=== PATIENT | male | born 1950 | race Caucasian/White ===

== ENCOUNTER → 2018-05-24 | Day surgery (SDC) | payer OTHER ==
[~2018-05-24] VITALS: Ht 172.7 cm; Wt 70.3 kg
[~2018-05-24] MED LIST: PERCOCET 5-3251 EACH PO
--- NOTE | 2018-05-24 14:19 | Operative Report ---
Operative/Inv Procedure Report Surgery Date: 05/24/18 Name of Procedure: 1. Nasal septal reconstruction 2. Middle turbinate destin bullosa excision, left 3. Middle turbinate partial excision, right 4. Inferior turbinate outfracture and submucous resection, bilateral Pre-Operative Diagnosis: 1. Deviated nasal septum 2. Inferior turbinate hypertrophy, bilateral 3. Destin bullosa middle turbinate, left 4. MiddleTurbinate hypertrophy, right Post-Operative Diagnosis: Same Estimated Blood Loss: less than 50ml Surgeon/Distresser: Payton Martinez MD Anesthesia: general endotracheal tube Monitors: None Drains: None Specimens: septum and turbinates Complications: None Condition: Stable on leaving the OR Operative Indication: Nasal airway obstruction secondary to deviated septum and turbinate hypertrophy Operative/Procedure Note Note: The patient was brought to the operating room. Placed on the operating room table in supine position. At first timeout was performed identifying the patient, ID numbers and procedure to be performed. Next general oral endotracheal anesthesia was induced. Endotracheal tube was secured with tape over the last corner of the lip. Operating room table was rotated 90 to the left and patient was positioned for septal surgery with head slightly hyperextended and rotated to the right. At first vasoconstriction was carried by application of Afrin spray on cottonoid pledgets. Next nasal septum was injected with 1% lidocaine with 1: 100,000 epinephrine approximately 12mL was injected on the right and another 6 mL on the left. This followed by placement of cotton pledgets saturated with cocaine solution and Afrin spray. Patient's face was then prepped and draped in routine manner and surgery was performed. A KISS sponge was placed into the nasopharynx for drainage secretions. A right Hemitransfixion incision was placed and anterior mucoperichondrial tunnel was elevated followed by posterior mucoperiosteal tunnel. Bony cartilaginous junction was identified and and mucoperiosteal tunnel was elevated on the contralateral side. And anteriorly there was quadrangular cartilage deviation to the left with adjacent prominence of the maxillary crest. Superiorly there was also prominence quadrangular cartilage adjacent to the perpendicular plate of the ethmoid. Posteriorly there was significant vomerine protrusion with a spur to the right. At first quadrangular cartilage was transected anteriorly and dissection was carried on the left side. This drained within the cartilage broken by making multiple incision and quadrangular cartilage was then turned to the right to relieve the anterior obstruction on the left. Some of the quadrangular cartilage was shaved of the maxillary crest on the left which further released to the left anterior obstruction. Superiorly bony cartilaginous junction was and some of the quadrangular cartilage was shaved to relieve superior obstruction. Attention was paid to the vomerine bone. There was significant vomerine spur which was wedging into the middle meatus on the right. The protruding part of the bone was removed in a piecemeal manner followed by removal of the vomerine spurr. This relieved posterior obstruction. During removal of the spur also small fenestra was created in the posterior septum to serve as a drainage hole. Once the septoplasty was completed, closure was carried with 5-0 chromic simple sutures. Followed by placement of a mattress sutures with 5-0 chromic. Please note that the entire septoplasty was carried with 0 scope as well as directed visualization with a headlight. Next left middle turbinate destin bullosa was reduced along its inferior border , destin bullosa was excised. This was done with direct visualization with 0 scope. Similar procedure was carried on the right. The right middle turbinate was hypertrophied and it was reduced along its inferior border. The middle turbinates were hypertrophied and obstructing the middle meatus. Normal middle meatus was ventilating well. Next inferior turbinates were then outfractured and excised in submucous maner, first left then right. Surgery was completed. Nasal packing was applied next. Nasal fossa was packed with Telfa saturated with Bactroban ointment. Telfa was stitched anteriorly with 2-0 silk to prevent posterior displacement. Helotene slurry was injected into the middle meatus bilaterally for hemostasis. Surgery was completed. The patient was reawakened, extubated and taken to the recovery room in good condition. There were no complications. Estimated blood was was 30 mL. Findings: SeptumS shape with anterior quadrangular septum deviation to the left and posterior vomerine bone deviation to the right Left middle turbinateconcha bullosa Right middle turbinatehypertrophy Inferior turbinateshypertrophy Discharge Disposition: Same Day Admissions
== END ==
LOC: STS 03:06
DX: J34.2 Deviated nasal septum (principal); J34.3 Hypertrophy of nasal turbinates; J34.89 Other specified disorders of nose and nasal sinuses; F17.200 Nicotine dependence, unspecified, uncomplicated; G43.B0 Ophthalmoplegic migraine, not intractable; E03.9 Hypothyroidism, unspecified; J44.9 Chronic obstructive pulmonary disease, unspecified; I25.10 Atherosclerotic heart disease of native coronary artery without angina pectoris; I49.3 Ventricular premature depolarization; Z79.82 Long term (current) use of aspirin
CPT/HCPCS: 88304; 88305; J0131; J0690; J2250; J3490